=== PATIENT | male | born 1985 | race African-American/Black ===

== ENCOUNTER 2017-03-29 12:36 | Emergency (ER) | payer SELFPAY ==
[~2017-03-29] VITALS: Ht 185.4 cm; Wt 113.4 kg
[2017-03-29] MEDS ORDERED: PIP/TAZO PER PHARMACY MC PRN (13:15)
[2017-03-29] MEDS ORDERED: VANCOMYCIN PER PHARMACY MC PRN (13:15)
--- NOTE | 2017-03-29 13:24 | RAD ---
Two-view left foot study History: Foot swelling. Blister popped open on the bottom of the foot days ago. Oozing. Findings: No acute fracture or dislocation or osteolytic process is evident. Dorsal soft tissue swelling is evident secondary to cellulitis. IMPRESSION: No acute osseous abnormality.
[2017-03-29 13:36] LABS: BASO % 0 % (0-3); EOS # 0.1 x10^3/uL (0.0-0.7); EOS % 1 % (0-3); HEMATOCRIT 33.8 % (39.0-53.0); HEMOGLOBIN 11.3 g/dL (13.0-17.5); LYMPH % 12 % (24-48); MEAN CORPUSCULAR HEMOGLOBIN 28 pg (25-35); MEAN CORPUSCULAR HGB CONC 33 g/dL (31-37); MEAN CORPUSCULAR VOLUME 83 fL (79-100); MONO # 0.7 x10^3/uL (0.0-1.1); MONO % 7 % (0-9); NEUT # 7.2 x10^3uL (1.8-7.7); NEUT % 80 % (31-73); PLATELET COUNT 356 x10^3/uL (140-400); RED BLOOD COUNT 4.07 x10^6/uL (4.30-5.70); RED CELL DISTRIBUTION WIDTH 17.3 % (11.5-14.5)
[2017-03-29] MEDS ORDERED: VANCOMYCIN 2 GM in IV NORMAL SALINE 500ML 500 ML IV ONE (13:45)
[2017-03-29 13:52] LABS: ALBUMIN 2.4 g/dL (3.4-5.0); ALBUMIN/GLOBULIN RATIO 0.5 (1.0-1.7); CALCIUM 8.5 mg/dL (8.5-10.1); GFR 104.1; POTASSIUM 3.9 mmol/L (3.5-5.1); TOTAL BILIRUBIN 0.3 mg/dL (0.2-1.0); TOTAL PROTEIN 7.5 g/dL (6.4-8.2)
[2017-03-29 14:08] LABS: C REACTIVE PROTEIN 147.8 mg/L (0-3.3)
[2017-03-29 14:43] LABS: SEDIMENTATION RATE 100 (0-15)
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
[2017-03-29 19:48] VITALS: BP 153/64
== END 2017-03-29 20:25 | disposition short-term general hospital (02) ==
LOC: ER 12:36
DX: L03.116 Cellulitis of left lower limb (principal); L89.153 Pressure ulcer of sacral region, stage 3; G82.20 Paraplegia, unspecified; Z88.0 Allergy status to penicillin
CPT/HCPCS: 36415; 73620; 80053; 85025; 85651; 86140; 87040; 96365; 96366; 99285; J3370; J7040

== ENCOUNTER → 2017-04-25 | Outpatient (CLI) | payer MEDICAID ==
[2017-03-29 19:48] VITALS: BP 153/64
[2017-04-25 13:25] LABS: BASO % 1 % (0-3); EOS # 0.1 x10^3/uL (0.0-0.7); EOS % 3 % (0-3); HEMATOCRIT 36.2 % (39.0-53.0); HEMOGLOBIN 11.7 g/dL (13.0-17.5); LYMPH % 18 % (24-48); MEAN CORPUSCULAR HEMOGLOBIN 27 pg (25-35); MEAN CORPUSCULAR HGB CONC 32 g/dL (31-37); MEAN CORPUSCULAR VOLUME 83 fL (79-100); MONO # 0.6 x10^3/uL (0.0-1.1); MONO % 12 % (0-9); NEUT # 3.6 x10^3uL (1.8-7.7); NEUT % 67 % (31-73); PLATELET COUNT 253 x10^3/uL (140-400); RED BLOOD COUNT 4.36 x10^6/uL (4.30-5.70); RED CELL DISTRIBUTION WIDTH 19.2 % (11.5-14.5); WHITE BLOOD COUNT 5.3 x10^3/uL (4.0-11.0)
[2017-04-25 13:29] LABS: ANION GAP 5 (6-14); BLOOD UREA NITROGEN 11 mg/dL (8-26); CALCIUM 8.4 mg/dL (8.5-10.1); CARBON DIOXIDE 31 mmol/L (21-32); CHLORIDE 106 mmol/L (98-107); CREATININE 0.8 mg/dL (0.7-1.3); GFR 134.7; GLUCOSE 101 mg/dL (70-99); POTASSIUM 4.1 mmol/L (3.5-5.1); SODIUM 142 mmol/L (136-145); VANC TR 11.8 mcg/mL (10.0-20.0)
[2017-04-25 14:32] LABS: SEDIMENTATION RATE 43 (0-15)
== END | disposition home or self-care (01) ==
LOC: SPEC 12:53
PROVIDERS: ATTEND Internal Medicine Infectious Disease
DX: L89.94 Pressure ulcer of unspecified site, stage 4 (principal); F17.200 Nicotine dependence, unspecified, uncomplicated
CPT/HCPCS: 36415; 80048; 80202; 85025; 85651

== ENCOUNTER → 2017-05-09 | Outpatient (CLI) | payer MEDICAID ==
[2017-05-09 13:56] LABS: ANION GAP 6 (6-14); BLOOD UREA NITROGEN 11 mg/dL (8-26); CALCIUM 8.6 mg/dL (8.5-10.1); CARBON DIOXIDE 31 mmol/L (21-32); CHLORIDE 104 mmol/L (98-107); CREATININE 0.7 mg/dL (0.7-1.3); GFR 157.2; GLUCOSE 81 mg/dL (70-99); POTASSIUM 4.4 mmol/L (3.5-5.1); SODIUM 141 mmol/L (136-145)
[2017-05-09 14:06] LABS: BASO % 1 % (0-3); EOS # 0.5 x10^3/uL (0.0-0.7); EOS % 9 % (0-3); HEMATOCRIT 37.2 % (39.0-53.0); HEMOGLOBIN 12.1 g/dL (13.0-17.5); LYMPH # 1.3 x10^3/uL (1.0-4.8); LYMPH % 25 % (24-48); MEAN CORPUSCULAR HEMOGLOBIN 26 pg (25-35); MEAN CORPUSCULAR HGB CONC 33 g/dL (31-37); MEAN CORPUSCULAR VOLUME 80 fL (79-100); MONO # 0.5 x10^3/uL (0.0-1.1); MONO % 10 % (0-9); NEUT # 2.9 x10^3uL (1.8-7.7); NEUT % 56 % (31-73); PLATELET COUNT 240 x10^3/uL (140-400); RED BLOOD COUNT 4.67 x10^6/uL (4.30-5.70); WHITE BLOOD COUNT 5.2 x10^3/uL (4.0-11.0)
[2017-05-09 15:12] LABS: SEDIMENTATION RATE 27 (0-15)
== END | disposition home or self-care (01) ==
LOC: SPEC 13:25
PROVIDERS: ATTEND Internal Medicine Infectious Disease
DX: L89.314 Pressure ulcer of right buttock, stage 4 (principal); F17.200 Nicotine dependence, unspecified, uncomplicated
CPT/HCPCS: 36415; 80048; 80202; 85025; 85651